=== PATIENT | female | born 1995 | race Caucasian/White ===

== ENCOUNTER 2018-09-20 23:27 | Emergency (ER) | payer OTHER ==
[2018-09-21 00:08] LABS: ABS Basophils 0 10^3/ul (0-0.2); ABS Eosinophils 0.1 10^3/ul (0-0.6); ABS Lymphocytes 3.7 10^3/ul (1.0-4.8); ABS Monocytes 0.5 10^3/ul (0-0.8); ABS Neutrophils 2.4 10^3/ul (1.5-7.7); ABS Nucleated RBC 0 10^3/ul; Hematocrit 37 % (35-47); Hemoglobin 12.6 g/dl (12.0-16.0); Lymphocyte % 54.8 %; Mean Corpuscular HGB Conc 34 g/dl (31-36); Mean Corpuscular Hemoglobin 30 pg (27-31); Mean Corpuscular Volume 90 fL (80-97); Mean Platelet Volume 7.4 fL (7.4-10.4); Nucleated Red Blood Cells % 0.1; Platelet Count 302 10^3/ul (150-450); Red Blood Count 4.13 10^6/ul (4.00-5.40); Red Cell Distribution Width 13 % (10.5-15); White Blood Count 6.8 10^3/ul (3.5-10.8)
[2018-09-21 00:25] LABS: ALT 11 U/L (7-52); AST 14 U/L (13-39); Albumin 4.5 g/dL (3.2-5.2); Albumin/Globulin Ratio 1.7 (1-3); Alkaline Phosphatase 47 U/L (34-104); Anion Gap 6 mmol/L (2-11); BUN/Creatinine Ratio 12.2 (8-20); Blood Urea Nitrogen 9 mg/dL (6-24); CO2 Carbon Dioxide 27 mmol/L (22-32); Calcium 9.6 mg/dL (8.6-10.3); Chloride 105 mmol/L (101-111); EGFR Non-African American 97.3 (>60); Globulin 2.7 g/dL (2-4); Glucose 96 mg/dL (70-100); Potassium 3.7 mmol/L (3.5-5.0); Sodium 138 mmol/L (135-145); Total Protein 7.2 g/dL (6.4-8.9)
[2018-09-21 00:30] LABS: HCG Pregnancy < 0.60 mIU/mL
--- NOTE | 2018-09-21 00:33 | ED ---
Palpitations / Dysrhythmia - HPI Summary HPI Summary: Patient complains of episodes of palpitations 1 year, occurring more frequently this year. Patient has had stress test and EKG performed this past year with negative results. Patient states she gets episodes of lightheadedness , sensation of SOB and heart palpitations that last a few seconds each episode. Symptoms always occur when patient is sitting down, did not occur with exertion. Patient denies recent stress,, fever, cough, sore throat, CP, N/V/D, abdominal pain, change in urine, change in BM, vaginal symptoms. Patient on OCP for past 3 years, denies history of blood clots, recent surgery or trauma, history of , history of long travel or immobility. Medical history is none. Nonsmoker, denies excessive use of caffeine or energy drinks, recreational drug use, EtOH. - History of Current Complaint Chief Complaint: EDDysrhythmPalp Time Seen by Provider: 09/20/18 23:41 Hx Obtained From: Patient Onset/Duration: Sudden Onset Timing: Intermittent Episodes Lasting: - seconds Severity Initially: Mild Severity Currently: Mild Character: Fast Aggravating: Rest Alleviating: Nothing Associated Signs & Symptoms: Lightheadedness, Shortness of Breath - Allergy/Home Medications Allergies/Adverse Reactions: Allergies Allergy/AdvReac Type Severity Reaction Status Date / Time No Known Allergies Allergy Verified 09/20/18 23:31 PMH/Surg Hx/FS Hx/Imm Hx Endocrine/Hematology History: Denies: Hx Anticoagulant Therapy Cardiovascular History: Denies: Hx Cardiac Arrest History: Denies: Hx Dialysis Sensory History: Denies: Hx Eye Prosthesis EENT History: Denies: Hx Deafness Neurological History: Denies: Hx Developmental Delay Psychiatric History: Denies: Hx Autism Infectious Disease History: No Infectious Disease History: Denies: Traveled Outside the [place] in Last 30 Days - Social History Alcohol Use: Rare Substance Use Type: Reports: None Smoking Status (MU): Never Smoked Tobacco Review of Systems Constitutional: Negative Eyes: Negative ENT: Negative Positive: Palpitations Positive: Shortness Of Breath Gastrointestinal: Negative Genitourinary: Negative Musculoskeletal: Negative Skin: Negative Neurological: Negative Psychological: Normal All Other Systems Reviewed And Are Negative: Yes Physical Exam - Summary Physical Exam Summary: Physical exam unremarkable. Physical exam unremarkable. Triage Information Reviewed: Yes Vital Signs On Initial Exam: Initial Vitals Temp Pulse Resp BP Pulse Ox 99.1 F 84 16 128/91 100 09/20/18 23:29 09/20/18 23:29 09/20/18 23:29 09/20/18 23:29 09/20/18 23:29 Vital Signs Reviewed: Yes Appearance: Positive: Well-Appearing Skin: Positive: Warm Head/Face: Positive: Normal Head/Face Inspection Eyes: Positive: Normal Neck: Positive: Supple Respiratory/Lung Sounds: Positive: Clear to Auscultation Cardiovascular: Positive: Normal Abdomen Description: Positive: Nontender Musculoskeletal: Positive: Normal Neurological: Positive: Normal Psychiatric: Positive: Normal AVPU Assessment: Alert - [place] Coma Scale Best Eye Response: 4 - Spontaneous Best Motor Response: 6 - Obeys Commands Best Verbal Response: 5 - Oriented Coma Scale Total: 15 Diagnostics - Vital Signs Vital Signs Temp Pulse Resp BP Pulse Ox 09/20/18 23:29 99.1 F 84 16 128/91 100 - Laboratory Lab Results: Lab Results 09/20/18 09/20/18 Range/Units 23:55 23:55 WBC 6.8 (3.5-10.8) 10^3/ul RBC 4.13 (4.00-5.40) 10^6/ul Hgb 12.6 (12.0-16.0) g/dl Hct 37 (35-47) % MCV 90 (80-97) fL MCH 30 (27-31) pg MCHC 34 (31-36) g/dl RDW 13 (10.5-15) % Plt Count 302 (150-450) 10^3/ul MPV 7.4 (7.4-10.4) fL Neut % (Auto) 35.7 % Lymph % (Auto) 54.8 % [place] % (Auto) 8.1 % Eos % (Auto) 1.0 % Baso % (Auto) 0.4 % Absolute Neuts (auto) 2.4 (1.5-7.7) 10^3/ul Absolute Lymphs (auto) 3.7 (1.0-4.8) 10^3/ul Absolute Monos (auto) 0.5 (0-0.8) 10^3/ul Absolute Eos (auto) 0.1 (0-0.6) 10^3/ul Absolute Basos (auto) 0 (0-0.2) 10^3/ul Absolute Nucleated RBC 0 10^3/ul Nucleated RBC % 0.1 Sodium 138 (135-145) mmol/L Potassium 3.7 (3.5-5.0) mmol/L Chloride 105 (101-111) mmol/L Carbon Dioxide 27 (22-32) mmol/L Anion Gap 6 (2-11) mmol/L BUN 9 (6-24) mg/dL Creatinine 0.74 (0.51-0.95) mg/dL Est GFR ( Amer) 117.7 (>60) Est GFR (Non-Af Amer) 97.3 (>60) BUN/Creatinine Ratio 12.2 (8-20) Glucose 96 (70-100) mg/dL Calcium 9.6 (8.6-10.3) mg/dL Total Bilirubin 0.30 (0.2-1.0) mg/dL AST 14 (13-39) U/L ALT 11 (7-52) U/L Alkaline Phosphatase 47 (34-104) U/L C-Reactive Protein 4.10 (<8.01) mg/L Total Protein 7.2 (6.4-8.9) g/dL Albumin 4.5 (3.2-5.2) g/dL Globulin 2.7 (2-4) g/dL Albumin/Globulin Ratio 1.7 (1-3) Beta HCG, Quant < 0.60 mIU/mL Result Diagrams: 09/20/18 23:55 09/20/18 23:55 Lab Statement: Any lab studies that have been ordered have been reviewed, and results considered in the medical decision making process. Course/Dx - Course Course Of Treatment: Patient complains of episodes of palpitations 1 year, occurring more frequently this year. Patient has had stress test and EKG performed this past year with negative results. Patient states she gets episodes of lightheadedness, sensation of SOB and heart palpitations that last a few seconds each episode. Symptoms always occur when patient is sitting down , did not occur with exertion. Patient denies recent stress,, fever, cough, sore throat, CP, N/V/D, abdominal pain, change in urine, change in BM, vaginal symptoms. Patient on OCP for past 3 years, denies history of blood clots, recent surgery or trauma, history of , history of long travel or immobility. Medical history is none. Nonsmoker, denies excessive use of caffeine or energy drinks, recreational drug use, EtOH. Physical exam unremarkable. Vital signs within normal limits. EKG sinus rhythm. Labs unremarkable. Advised patient to follow up with primary care and cardiology for Holter monitor. - Diagnoses Provider Diagnoses: Palpitations Discharge - Sign-Out/Discharge Documenting (check all that apply): Patient Departure - Discharge Plan Condition: Stable Disposition: HOME Patient Education Materials: Heart Palpitations (ED) Referrals: No Primary Care Phys,NOPCP [Primary Care Provider] - Gavino Harmon MD [Medical Doctor] - Additional Instructions: Follow-up with primary care or cardiology to arrange for Holter monitor for further evaluation of episodes of palpitations. Return to the ED for any new or worsening symptoms. - Billing Disposition and Condition Condition: STABLE Disposition: Home
[2018-09-21 01:08] VITALS: BP 125/76
== END 2018-09-21 01:06 | disposition home or self-care (01) ==
LOC: ED 23:27
DX: R00.2 Palpitations (principal); R42 Dizziness and giddiness; R06.02 Shortness of breath
CPT/HCPCS: 36415; 80053; 84702; 85025; 86140; 93005; 99282